=== PATIENT | female | born 1985 | race Caucasian/White ===

== ENCOUNTER 2017-01-19 10:28 | Emergency (ER) | payer OTHER ==
[~2017-01-19] VITALS: Ht 162.6 cm; Wt 65.9 kg
[2017-01-19 10:33] VITALS: BP 125/68; PULSE 74; RESP 16; TEMP 98.3; O2SAT 100
--- NOTE | 2017-01-19 11:41 | PD ---
HPI Chief Complaint: Allergic/Adverse Reaction Time Seen by Provider: 11:09 Travel History International Travel<30 days: No Contact w/Intl Traveler<30days: No Traveled to known affect area: No History of Present Illness HPI The patient was seen and examined in the presence of the nurse. This patient was trying to lose weight and she took some [id number] dietary supplements at 8:30 this morning. She complains of some generalized malaise after taking the medication. She was not having an intentional overdose. She took the supplements in their proper dosing. She has no depression or suicidal ideation. No chest pain or shortness of breath or palpitations. Duration 3 hours PFSH Past Medical History Medical History: Denies Significant Hx Tetanus Vaccination: < 5 Years Influenza Vaccination: Yes ?: Not LMP: a week ago Past Surgical History Other Surgery: Yes (LUMPECTOMY RIGHT BREAST) Social History Alcohol Use: Yes (RARE) Tobacco Use: No Substance Use: No Allergies-Medications (Allergen,Severity, Reaction): Coded Allergies: No Known Allergies (Unverified , 01/19/17) Review of Systems General / Constitutional: No: Fever Eyes: No: Visual changes HENT: No: Headaches Cardiovascular: No: Chest Pain or Discomfort Respiratory: No: Shortness of Breath Gastrointestinal: No: Abdominal Pain Genitourinary: No: Dysuria Musculoskeletal: No: Pain Skin: No Rash Neurologic: No: Weakness Psychiatric: No: Depression Endocrine: No: Polydipsia Hematologic/Lymphatic: No: Easy Bruising Physical Exam Narrative GENERAL: Well-nourished, well-developed patient in no apparent distress. SKIN: Focused skin assessment reveals no rash and nodules. Skin is Warm and dry. HEAD: Atraumatic. Normocephalic. EYES: Pupils equal and round. No scleral icterus. No injection or drainage. ENT: No nasal bleeding or discharge. Mucous membranes pink and moist. NECK: Trachea midline. No JVD. CARDIOVASCULAR: Regular rate and rhythm. No murmur appreciated. RESPIRATORY: No accessory muscle use. Clear to auscultation. Breath sounds equal bilaterally. GASTROINTESTINAL: Abdomen soft, non-tender, nondistended. Hepatic and splenic margins not palpable. MUSCULOSKELETAL: No obvious deformities. No clubbing. No cyanosis. No edema. NEUROLOGICAL: Awake and alert. No obvious cranial nerve deficits. Motor grossly within normal limits. Normal speech. PSYCHIATRIC: Appropriate mood and affect; insight and judgment normal. Data Data Last Documented VS Vital Signs Date Time Temp Pulse Resp B/P Pulse Ox O2 Delivery O2 Flow Rate FiO2 01/19/17 11:07 56 Room Air 01/19/17 10:33 98.3 16 125/68 100 MDM Medical Decision Making Medical Screen Exam Complete: Yes Emergency Medical Condition: Yes Medical Record Reviewed: Yes Differential Diagnosis Medication side effect, cardiac arrhythmia, palpitations Narrative Course I have reviewed the patient's electronic medical record. Patient's exam is normal Extended cardiac monitoring reveals sinus rhythm without ectopy She does not need any emergent medical studies I recommended she avoid these supplementations which included ginkgo biloba and green tea extract Diagnosis Primary Impression: Medication side effect Qualified Code: T88.7XXA - Adverse effect of drug, initial encounter Additional Instructions: The patient was advised to follow up with their physician and return if they worsen. Med/Other Pt SpecificInfo: Other Disposition: 01 DISCHARGE HOME Condition: Stable Fransico Watkins MD Jan 19, 2017 11:41
[2017-01-19 11:59] VITALS: BP 92/61
== END 2017-01-19 12:00 | disposition home or self-care (01) ==
LOC: PHED 10:28
DX: R53.81 Other malaise (principal); T50.905A Adverse effect of unspecified drugs, medicaments and biological substances, initial encounter
CPT/HCPCS: 99281